=== PATIENT | female | born 1995 | race African-American/Black ===

== ENCOUNTER 2019-10-03 12:36 | Inpatient (IN) | payer MEDICAID ==
[~2019-10-03] VITALS: Ht 167.6 cm; Wt 60.8 kg
[2019-10-03 14:17] LABS: CLARITY URINE TURBID (CLEAR); COLOR URINE YELLOW (YELLOW); KETONES URINE NEGATIVE (NEGATIVE); LEUKOCYTE ESTERASE URINE 2+ (NEGATIVE); NITRITE URINE NEGATIVE (NEGATIVE); OCCULT BLOOD URINE NEGATIVE (NEGATIVE); PH URINE >=9.0 (4.5-8.0); PROTEIN URINE TRACE (NEGATIVE); SPECIFIC GRAVITY URINE 1.023 (1.005-1.030)
[2019-10-03] MEDS ORDERED: ONDANSETRON HCL 4MG/2ML INJ IV SCH (15:00)
[2019-10-03] MEDS: LACTATED RINGERS 1,000 ML IV SCH (15:07)
[2019-10-03] MEDS ORDERED: TERBUTALINE SULFATE 1MG/ML VIAL SUBCUT SCH (15:30)
[2019-10-03] MEDS ORDERED: BETAMETHASONE ACET/BETAMET 30 MG/5 ML VIAL IM ONE (16:15)
[2019-10-03] MEDS ORDERED: MAGNESIUM 4 G PREMIX 100 ML IV ONE (17:00)
[2019-10-03] MEDS ORDERED: RHO(D) IMMUNE GLOBULIN 300 MCG/SYR IM NR (18:00)
[2019-10-03 18:55] LABS: CLARITY URINE CLEAR (CLEAR); COLOR URINE YELLOW (YELLOW); KETONES URINE 1+ (NEGATIVE); LEUKOCYTE ESTERASE URINE NEGATIVE (NEGATIVE); NITRITE URINE NEGATIVE (NEGATIVE); OCCULT BLOOD URINE NEGATIVE (NEGATIVE); PH URINE 7.5 (4.5-8.0); PROTEIN URINE NEGATIVE (NEGATIVE); SPECIFIC GRAVITY URINE 1.012 (1.005-1.030); UROBILINOGEN URINE 0.2 E.U./dL (0.2-1.0)
[2019-10-03 19:13] LABS: *AMPHETAMINES SCREEN URINE NEGATIVE (NEGATIVE); *BARBITURATES SCREEN URINE NEGATIVE (NEGATIVE); *BENZODIAZEPINES SCREEN URINE NEGATIVE (NEGATIVE); *COCAINE SCREEN URINE NEGATIVE (NEGATIVE); METHADONE URINE SCREEN NEGATIVE (NEGATIVE)
[2019-10-03 19:14] LABS: OPIATES URINE SCREEN NEGATIVE (NEGATIVE); PHENCYCLIDINE URINE SCREEN NEGATIVE (NEGATIVE)
[2019-10-03 19:19] LABS: CANNABINOID URINE SCREEN PRESUMTIVE POSITIVE (NEGATIVE)
[2019-10-03 20:34] LABS: HEMATOCRIT. 28.4 % (36.0-48.0); MEAN CORPUSCULAR HEMOGLOBIN 30.6 pg (28.0-32.0); MEAN CORPUSCULAR VOLUME 86.9 fL (81.0-99.0); MEAN PLATELET VOLUME 6.7 fl (7.4-10.4); PLATELET 307 x1000/uL (130-400); RED BLOOD CELL COUNT 3.27 mill/uL (4.2-5.4); RED CELL DISTRIBUTION WIDTH 13.5 % (11.6-14.6)
[2019-10-03 20:41] LABS: INR 0.9; PARTIAL THROMBOPLASTIN TIME 24.5 sec (23.4-31.0); PROTHROMBIN TIME 9.8 sec (9.6-11.0)
[2019-10-03 21:07] LABS: HEPATITIS B SURFACE ANTIGEN NEGATIVE
[2019-10-03 21:10] LABS: PLATELET ESTIMATE NORMAL
[2019-10-04] MEDS: BUTORPHANOL TARTRATE 2 MG/ML VIAL IM PRN ×2 (00:21→20:30)
[2019-10-04] MEDS: AMPICILLIN 2,000 MG in SODIUM CHLORIDE 0.9% 100 ML IV SCH ×4 (00:43→18:27)
[2019-10-04] MEDS: LACTATED RINGERS 1,000 ML IV SCH ×2 (02:53→12:17)
[2019-10-04] MEDS: MAGNESIUM 20 G PREMIX (L & D) 500 ML IV SCH ×2 (05:01→14:46)
[2019-10-04] MEDS ORDERED: BETAMETHASONE ACET/BETAMET 30 MG/5 ML VIAL IM NR (16:30)
[2019-10-04] MEDS ORDERED: MAGNESIUM 20 G PREMIX (L & D) 500 ML IV SCH (21:15)
[2019-10-05] MEDS ORDERED: ONDANSETRON HCL 4MG/2ML INJ ONE (06:43)
[2019-10-05] MEDS: AMPICILLIN 2,000 MG in SODIUM CHLORIDE 0.9% 100 ML IV SCH ×3 (06:55→19:04)
[2019-10-05] MEDS: BUTORPHANOL TARTRATE 2 MG/ML VIAL IM PRN (06:57)
[2019-10-05 07:00] VITALS: BP 107/54
[2019-10-05] MEDS ORDERED: ONDANSETRON HCL 4MG/2ML INJ IV PRN (07:00)
[2019-10-05] MEDS: LACTATED RINGERS 1,000 ML IV SCH ×3 (10:46→19:21)
[2019-10-06] MEDS: AMPICILLIN 2,000 MG in SODIUM CHLORIDE 0.9% 100 ML IV SCH ×2 (01:09→06:58)
[2019-10-10 07:12] LABS: CANNABINOID CONFIRMATION URINE Positive (.)
== END 2019-10-06 12:15 | disposition home or self-care (01) | DRG 563 ==
LOC: OBSVTOIN 12:36 → 8 EST LDRP 12:36
PROVIDERS: ADMIT Obstetrics & Gynecology; ATTEND Obstetrics & Gynecology
DX: O60.03 Preterm labor without delivery, third trimester (principal); Z3A.29 29 weeks gestation of pregnancy; Z84.89 Family history of other specified conditions
CPT/HCPCS: 36415; 59412; 76805; 76818; 76830; 80305; 80349; 81003; 83735; 85025; 86592; 86703; 86762; 86850; 86900; 87340; 96360; 96372; 99281; G0378; J0290; J0595; J0702; J2405; J3105; J3475; J7050

== ENCOUNTER 2019-11-15 19:15 | Observation (INO) | payer MEDICAID ==
[~2019-11-15] VITALS: Ht 170.2 cm; Wt 65.8 kg
[2019-11-15] MEDS ORDERED: DEXT 5%/LACTATED RINGERS 1,000 ML IV SCH (20:30)
[2019-11-15 21:21] LABS: CLARITY URINE CLEAR (CLEAR); COLOR URINE DARK YELLOW (YELLOW); KETONES URINE NEGATIVE (NEGATIVE); LEUKOCYTE ESTERASE URINE 1+ (NEGATIVE); NITRITE URINE NEGATIVE (NEGATIVE); OCCULT BLOOD URINE NEGATIVE (NEGATIVE); PROTEIN URINE 1+ (NEGATIVE)
[2019-11-15 21:25] LABS: BASOPHILS % 0.2 % (0.0-2.0); EOSINOPHILS % 0.2 % (0.0-5.0); HEMATOCRIT. 28.5 % (36.0-48.0); HEMOGLOBIN. 9.6 g/dL (12.0-16.0); LYMPHOCYTES % 21.9 % (20.0-50.0); MEAN CORPUSCULAR HEMOGLOBIN 28.5 pg (28.0-32.0); MEAN CORPUSCULAR VOLUME 85.1 fL (81.0-99.0); MEAN PLATELET VOLUME 7.5 fl (7.4-10.4); MONOCYTES % 8.4 % (2.0-8.0); NEUTROPHILS % 69.3 % (40.0-76.0); PLATELET 313 x1000/uL (130-400); RED BLOOD CELL COUNT 3.35 mill/uL (4.2-5.4); RED CELL DISTRIBUTION WIDTH 13.1 % (11.6-14.6)
[2019-11-15] MEDS ORDERED: LACTATED RINGERS 1,000 ML IV SCH (22:15)
== END 2019-11-15 23:45 | disposition home or self-care (01) ==
LOC: 8 EST LDRP 19:15
PROVIDERS: ADMIT Obstetrics & Gynecology; ATTEND Obstetrics & Gynecology
DX: O26.893 Other specified pregnancy related conditions, third trimester (principal); R10.30 Lower abdominal pain, unspecified; Z3A.35 35 weeks gestation of pregnancy; O62.9 Abnormality of forces of labor, unspecified; V89.2XXA Person injured in unspecified motor-vehicle accident, traffic, initial encounter; Y93.89 Activity, other specified; Y92.89 Other specified places as the place of occurrence of the external cause; Y99.8 Other external cause status
CPT/HCPCS: 36415; 59025; 76805; 76818; 81003; 85025; 96360; 96361; G0378; 99281

== ENCOUNTER 2020-03-06 00:19 | Emergency (ER) | payer MEDICAID, OTHER ==
[~2020-03-06] VITALS: Ht 170.2 cm; Wt 52.7 kg
[2020-03-06] MEDS ORDERED: KETOROLAC 30MG/ML VIAL IV SCH (01:45)
[2020-03-06 01:53] LABS: BASOPHILS % 0.3 % (0.0-2.0); EOSINOPHILS % 0.1 % (0.0-5.0); HEMATOCRIT. 29.1 % (36.0-48.0); HEMOGLOBIN. 9.7 g/dL (12.0-16.0); LYMPHOCYTES % 15.9 % (20.0-50.0); MEAN CORPUSCULAR HEMOGLOBIN 26.3 pg (28.0-32.0); MEAN CORPUSCULAR VOLUME 78.8 fL (81.0-99.0); MEAN PLATELET VOLUME 6.6 fl (7.4-10.4); MONOCYTES % 8.5 % (2.0-8.0); NEUTROPHILS % 75.2 % (40.0-76.0); PLATELET 405 x1000/uL (130-400); RED BLOOD CELL COUNT 3.69 mill/uL (4.2-5.4); RED CELL DISTRIBUTION WIDTH 17.8 % (11.6-14.6)
[2020-03-06 01:54] LABS: CLARITY URINE CLOUDY (CLEAR); COLOR URINE YELLOW (YELLOW); KETONES URINE 1+ (NEGATIVE); LEUKOCYTE ESTERASE URINE TRACE (NEGATIVE); NITRITE URINE NEGATIVE (NEGATIVE); OCCULT BLOOD URINE NEGATIVE (NEGATIVE); PROTEIN URINE 3+ (NEGATIVE); SPECIFIC GRAVITY URINE 1.028 (1.005-1.030)
[2020-03-06 02:00] LABS: CHLORIDE 105 mEq/L (98-107)
[2020-03-06 02:04] LABS: PROTHROMBIN TIME 10.9 sec (9.6-11.0)
[2020-03-06] MEDS ORDERED: IOHEXOL-300 100 ML BOTTLE ONE (03:10)
[2020-03-06 04:58] VITALS: BP 110/71
== END 2020-03-06 06:22 | disposition home or self-care (01) ==
LOC: ER 00:19
DX: A09 Infectious gastroenteritis and colitis, unspecified (principal); R03.0 Elevated blood-pressure reading, without diagnosis of hypertension
CPT/HCPCS: 36415; 74177; 76705; 80053; 81003; 81025; 83690; 85025; 85610; 93005; 96374; 99285; J1885; Q9967

== ENCOUNTER 2020-12-09 02:10 | Inpatient (IN) | payer OTHER ==
[~2020-12-09] VITALS: Ht 170.2 cm; Wt 54.4 kg
[2020-12-09] MEDS: LACTATED RINGERS 1,000 ML IV SCH ×5 (02:15→17:57)
[2020-12-09] MEDS ORDERED: DEXT 5%/LR + PITOCIN 20UNITS/L 1,000 ML IV SCH (02:30)
[2020-12-09] MEDS ORDERED: MISOPROSTOL 100MCG TABLET VG SCH (02:30)
[2020-12-09] MEDS ORDERED: BUTORPHANOL TARTRATE 2 MG/ML VIAL IV PRN (02:30)
[2020-12-09] MEDS ORDERED: METHYLERGONOVINE MALEATE 0.2 MG/ML IM PRN (02:30)
[2020-12-09] MEDS ORDERED: LIDOCAINE HCL 1% 20ML VIAL (Pyxis) INJ INFIL SCH (02:30)
[2020-12-09] MEDS ORDERED: CARBOPROST TROMETHAMINE 250 MCG/ML AMPUL IM PRN (02:30)
[2020-12-09] MEDS ORDERED: NALOXONE HCL 0.4 MG/ML 1ML VIAL IM PRN (02:30)
[2020-12-09 02:53] LABS: CLARITY URINE CLEAR (CLEAR); COLOR URINE YELLOW (YELLOW); HEMATOCRIT. 28.2 % (36.0-48.0); HEMOGLOBIN. 9.2 g/dL (12.0-16.0); KETONES URINE NEGATIVE (NEGATIVE); LEUKOCYTE ESTERASE URINE TRACE (NEGATIVE); MEAN CORPUSCULAR HEMOGLOBIN 24.9 pg (28.0-32.0); MEAN CORPUSCULAR VOLUME 76.7 fL (81.0-99.0); MEAN PLATELET VOLUME 7.7 fl (7.4-10.4); NITRITE URINE NEGATIVE (NEGATIVE); OCCULT BLOOD URINE TRACE (NEGATIVE); PH URINE 8.5 (4.5-8.0); PLATELET 328 x1000/uL (130-400); PROTEIN URINE TRACE (NEGATIVE); RED BLOOD CELL COUNT 3.68 mill/uL (4.2-5.4); RED CELL DISTRIBUTION WIDTH 16.3 % (11.6-14.6); SPECIFIC GRAVITY URINE 1.016 (1.005-1.030)
[2020-12-09] MEDS ORDERED: PENICILLIN G POTASSIUM 5 MMU in DEXT 5% WATER 100 ML IV SCH (03:00)
[2020-12-09 03:03] LABS: INR 0.9; PARTIAL THROMBOPLASTIN TIME 23.8 sec (23.4-31.0); PROTHROMBIN TIME 9.7 sec (9.6-11.0)
[2020-12-09] MEDS ORDERED: BETAMETHASONE ACET/BETAMET 30 MG/5 ML VIAL IM ONE (03:45)
[2020-12-09 03:50] LABS: CHLORIDE 106 mEq/L (98-107)
[2020-12-09 03:58] LABS: *AMPHETAMINES SCREEN URINE NEGATIVE (NEGATIVE); *BARBITURATES SCREEN URINE NEGATIVE (NEGATIVE); *BENZODIAZEPINES SCREEN URINE NEGATIVE (NEGATIVE); *COCAINE SCREEN URINE NEGATIVE (NEGATIVE); METHADONE URINE SCREEN NEGATIVE (NEGATIVE); OPIATES URINE SCREEN NEGATIVE (NEGATIVE)
[2020-12-09 03:59] LABS: PHENCYCLIDINE URINE SCREEN NEGATIVE (NEGATIVE)
[2020-12-09 04:12] LABS: CANNABINOID URINE SCREEN PRESUMTIVE POSITIVE (NEGATIVE)
[2020-12-09 04:27] LABS: HEPATITIS B SURFACE ANTIGEN NEGATIVE
[2020-12-09] MEDS ORDERED: ONDANSETRON HCL 4MG/2ML INJ IV PRN (05:00)
[2020-12-09] MEDS ORDERED: DIPHENHYDRAMINE 50MG/ML VIAL IV PRN (05:00)
[2020-12-09] MEDS ORDERED: ROPIVACAINE HCL/PF EPIDURAL 200 ML EPI SCH (05:00)
[2020-12-09] MEDS: PENICILLIN G POTASSIUM 2.5 MMU in DEXTROSE 5% WATER 50 ML IV SCH ×5 (07:30→21:23)
[2020-12-09 08:05] LABS: PLATELET ESTIMATE NORMAL
[2020-12-09] MEDS ORDERED: BETAMETHASONE ACET/BETAMET 30 MG/5 ML VIAL IM SCH (15:41)
[2020-12-09] MEDS ORDERED: ROPIVACAINE HCL/PF EPIDURAL 200 ML EPI ONE (23:20)
[2020-12-10] MEDS: PENICILLIN G POTASSIUM 2.5 MMU in DEXTROSE 5% WATER 50 ML IV SCH ×2 (01:30→05:42)
[2020-12-10] MEDS: LACTATED RINGERS 1,000 ML IV SCH ×2 (01:45→11:51)
[2020-12-10] MEDS ORDERED: NALOXONE HCL 0.4 MG/ML 1ML VIAL IM PRN (06:00)
[2020-12-10] MEDS ORDERED: LACTATED RINGERS 1,000 ML IV SCH (06:00)
[2020-12-10] MEDS ORDERED: CARBOPROST TROMETHAMINE 250 MCG/ML AMPUL IM PRN (06:00)
[2020-12-10] MEDS ORDERED: METHYLERGONOVINE MALEATE 0.2 MG/ML IM PRN (06:00)
[2020-12-10] MEDS ORDERED: AZITHROMYCIN 500 MG in DEXT 5% WATER 250 ML IV SCH (09:00)
[2020-12-10] MEDS ORDERED: ACETAMINOPHEN WITH CODEINE 300/30MG TABLET PO PRN ×2 (15:45→16:45)
[2020-12-10] MEDS ORDERED: BISACODYL 10MG SUPP PR PRN (15:45)
[2020-12-10] MEDS ORDERED: GLYCERIN/WITCH HAZEL LEAF MEDICATED PAD TOP PRN (15:45)
[2020-12-10] MEDS ORDERED: HEMORRHOIDAL SUPP PR PRN (15:45)
[2020-12-10] MEDS ORDERED: DEXT 5%/LR + PITOCIN 20UNITS/L 1,000 ML IV SCH (15:45)
[2020-12-10] MEDS ORDERED: LANOLIN OINT 7GM TUBE TOP PRN (15:45)
[2020-12-10] MEDS ORDERED: BENZOCAINE/LANOLIN/ALOE VERA SPRAY TOP PRN (15:45)
[2020-12-10] MEDS ORDERED: IBUPROFEN 400MG TABLET PO PRN (15:45)
[2020-12-10] MEDS ORDERED: DIPHENHYDRAMINE 25MG CAPSULE PO PRN (15:45)
[2020-12-10 16:10] VITALS: BP 122/75
[2020-12-10] MEDS: IBUPROFEN 800MG TABLET PO PRN ×2 (16:40→20:12)
[2020-12-10] MEDS: SIMETHICONE 80MG TABLET CHEW PO SCH ×2 (16:41→20:13)
[2020-12-10] MEDS: DOCUSATE SODIUM 100MG CAPSULE PO SCH (20:13)
[2020-12-10 21:00] VITALS: BP 107/63
[2020-12-11 04:00] VITALS: BP 110/70
[2020-12-11] MEDS: IBUPROFEN 800MG TABLET PO PRN ×2 (06:14→22:37)
[2020-12-11 07:11] LABS: BASOPHILS % 0.3 % (0.0-2.0); HEMATOCRIT. 25.8 % (36.0-48.0); HEMOGLOBIN. 8.3 g/dL (12.0-16.0); LYMPHOCYTES % 20.6 % (20.0-50.0); MEAN CORPUSCULAR HEMOGLOBIN 24.7 pg (28.0-32.0); MEAN CORPUSCULAR VOLUME 76.5 fL (81.0-99.0); MEAN PLATELET VOLUME 7.7 fl (7.4-10.4); MONOCYTES % 7.8 % (2.0-8.0); NEUTROPHILS % 71.3 % (40.0-76.0); PLATELET 288 x1000/uL (130-400); RED BLOOD CELL COUNT 3.38 mill/uL (4.2-5.4); RED CELL DISTRIBUTION WIDTH 16.5 % (11.6-14.6)
[2020-12-11 07:30] VITALS: BP 104/68
[2020-12-11] MEDS: PRENATAL VIT/FE FUMARATE/FA TABLET PO SCH (08:45)
[2020-12-11] MEDS: FERROUS SULFATE 325MG TABLET PO SCH ×3 (08:45→18:29)
[2020-12-11] MEDS: SIMETHICONE 80MG TABLET CHEW PO SCH ×4 (08:45→22:35)
[2020-12-11 16:38] VITALS: BP 110/65
[2020-12-11 22:00] VITALS: BP 119/64
[2020-12-11] MEDS: DOCUSATE SODIUM 100MG CAPSULE PO SCH (22:35)
[2020-12-12 05:28] VITALS: BP 100/60
[2020-12-12] MEDS: PRENATAL VIT/FE FUMARATE/FA TABLET PO SCH (09:04)
[2020-12-12 10:00] VITALS: BP 110/72
[2020-12-12] MEDS: SIMETHICONE 80MG TABLET CHEW PO SCH (13:11)
[2020-12-12] MEDS: FERROUS SULFATE 325MG TABLET PO SCH (13:11)
[2020-12-12] MEDS: IBUPROFEN 800MG TABLET PO PRN (13:11)
[2020-12-12 17:00] VITALS: BP 123/73
[2020-12-12 22:00] VITALS: BP 106/56
[2020-12-13] MEDS ORDERED: PREN-118 MT (04:01)
[2020-12-13] MEDS ORDERED: FERR325T23 MT (04:01)
[2020-12-13 06:00] VITALS: BP 118/70
[2020-12-13 08:45] VITALS: BP 120/72
[2020-12-13] MEDS: PRENATAL VIT/FE FUMARATE/FA TABLET PO SCH (13:13)
[2020-12-13] MEDS: FERROUS SULFATE 325MG TABLET PO SCH (13:13)
[2020-12-24 04:12] LABS: CANNABINOID CONFIRMATION URINE Positive (.)
== END 2020-12-13 13:30 | disposition home or self-care (01) | DRG 560 ==
LOC: 8 EST LDRP 02:10 → OBSVTOIN 02:10 → 8EST 12-10 15:44
PROVIDERS: ADMIT Specialist; ATTEND Specialist
PROC: 10E0XZZ Delivery of Products of Conception, External Approach (ICD-10-PCS; principal; 2020-12-10)
PROC: 0KQM0ZZ Repair Perineum Muscle, Open Approach (ICD-10-PCS; 2020-12-10)
PROC: 3E0R3BZ Introduction of Anesthetic Agent into Spinal Canal, Percutaneous Approach (ICD-10-PCS; 2020-12-10)
PROC: 00HU33Z Insertion of Infusion Device into Spinal Canal, Percutaneous Approach (ICD-10-PCS; 2020-12-10)
DX: O60.14X0 Preterm labor third trimester with preterm delivery third trimester, not applicable or unspecified (principal); Z37.0 Single live birth; O99.324 Drug use complicating childbirth; D64.9 Anemia, unspecified; F12.10 Cannabis abuse, uncomplicated; O99.02 Anemia complicating childbirth; Z20.822 Contact with and (suspected) exposure to COVID-19; O70.1 Second degree perineal laceration during delivery; Z3A.35 35 weeks gestation of pregnancy
CPT/HCPCS: 36415; 76805; 80053; 80305; 80349; 81003; 85025; 86592; 86703; 86762; 86850; 86900; 87340; 87426; 99281; J0456; J0595; J0702; J2540; J2590; J2795; J3490; J7060; J7120

== ENCOUNTER 2021-09-21 02:02 | Emergency (ER) | payer OTHER ==
[2021-09-20 21:18] LABS: CLARITY URINE CLEAR (CLEAR); COLOR URINE YELLOW (YELLOW); KETONES URINE TRACE (NEGATIVE); LEUKOCYTE ESTERASE URINE NEGATIVE (NEGATIVE); NITRITE URINE NEGATIVE (NEGATIVE); OCCULT BLOOD URINE NEGATIVE (NEGATIVE); PROTEIN URINE 1+ (NEGATIVE); SPECIFIC GRAVITY URINE 1.018 (1.005-1.030)
[2021-09-20 21:22] LABS: BASOPHILS % 0.2 % (0.0-2.0); EOSINOPHILS % 0.4 % (0.0-5.0); HEMATOCRIT. 24.2 % (36.0-48.0); HEMOGLOBIN. 8.2 g/dL (12.0-16.0); LYMPHOCYTES % 18.3 % (20.0-50.0); MEAN CORPUSCULAR HEMOGLOBIN 28.3 pg (28.0-32.0); MEAN CORPUSCULAR VOLUME 83.1 fL (81.0-99.0); MEAN PLATELET VOLUME 6.7 fl (7.4-10.4); MONOCYTES % 6.7 % (2.0-8.0); NEUTROPHILS % 74.4 % (40.0-76.0); PLATELET 317 x1000/uL (130-400); RED BLOOD CELL COUNT 2.91 mill/uL (4.2-5.4); RED CELL DISTRIBUTION WIDTH 14.5 % (11.6-14.6)
[2021-09-20 21:23] LABS: CHLORIDE 104 mEq/L (98-107)
[~2021-09-21] VITALS: Ht 170.2 cm; Wt 62.3 kg
[~2021-09-21 02:02] MED LIST: ACETAMINOPHEN 500MG TABLET PO NR; DEXT 5%/LACTATED RINGERS 1,000 ML IV SCH; TERBUTALINE SULFATE 1MG/ML VIAL SUBCUT PRN
[2021-09-21 02:57] VITALS: BP 106/78
[2021-09-21 04:25] LABS: BASOPHILS % 0.3 % (0.0-2.0); EOSINOPHILS % 0.2 % (0.0-5.0); HEMATOCRIT. 24.3 % (36.0-48.0); HEMOGLOBIN. 8.1 g/dL (12.0-16.0); MEAN CORPUSCULAR HEMOGLOBIN 27.7 pg (28.0-32.0); MEAN CORPUSCULAR VOLUME 82.7 fL (81.0-99.0); MEAN PLATELET VOLUME 6.6 fl (7.4-10.4); MONOCYTES % 9.2 % (2.0-8.0); NEUTROPHILS % 67.3 % (40.0-76.0); PLATELET 325 x1000/uL (130-400); RED BLOOD CELL COUNT 2.94 mill/uL (4.2-5.4); RED CELL DISTRIBUTION WIDTH 14.4 % (11.6-14.6)
[2021-09-21 04:38] LABS: CHLORIDE 106 mEq/L (98-107)
[2021-09-21] MEDS ORDERED: SODIUM CHLORIDE 0.9% 1,000 ML IV ONE (06:45)
== END 2021-09-21 09:30 | disposition home or self-care (01) ==
LOC: EDSTATUS 02:02 → ER 02:02
DX: O26.892 Other specified pregnancy related conditions, second trimester (principal); R55 Syncope and collapse; R51.9 Headache, unspecified; Z3A.26 26 weeks gestation of pregnancy
CPT/HCPCS: 36415; 70450; 76805; 76818; 80053; 81003; 84484; 85025; 93005; 96360; 96372; 99285; J3105; J7030; 99281

== ENCOUNTER 2021-12-12 10:19 | Inpatient (IN) | payer MEDICAID, OTHER ==
[~2021-12-12] VITALS: Ht 167.6 cm; Wt 63.5 kg
[2021-12-12] MEDS ORDERED: BUTORPHANOL TARTRATE 2 MG/ML VIAL IV PRN (11:00)
[2021-12-12] MEDS ORDERED: NALOXONE HCL 0.4 MG/ML 1ML VIAL IM PRN (11:00)
[2021-12-12] MEDS ORDERED: LIDOCAINE HCL 1% 20ML VIAL (Pyxis) INJ INFIL SCH (11:00)
[2021-12-12] MEDS ORDERED: METHYLERGONOVINE MALEATE 0.2 MG/ML IM PRN (11:00)
[2021-12-12] MEDS ORDERED: LACTATED RINGERS 1,000 ML IV SCH (11:00)
[2021-12-12] MEDS ORDERED: OXYTOCIN 30 UNITS/500ML NS PMX 500 ML IV SCH ×2 (11:00→12:15)
[2021-12-12] MEDS ORDERED: CARBOPROST TROMETHAMINE 250 MCG/ML AMPUL IM PRN (11:00)
[2021-12-12] MEDS ORDERED: AMPICILLIN 2GM in NS 100ML 100 ML IV SCH (11:00)
[2021-12-12] MEDS ORDERED: ROPIVACAINE HCL/PF EPIDURAL 200 ML EPI NR (11:15)
[2021-12-12 12:54] LABS: BASOPHILS % 0.4 % (0.0-2.0); EOSINOPHILS % 0.2 % (0.0-5.0); HEMATOCRIT. 31.7 % (36.0-48.0); HEMOGLOBIN. 10.6 g/dL (12.0-16.0); LYMPHOCYTES % 8.5 % (20.0-50.0); MEAN CORPUSCULAR HEMOGLOBIN 28.2 pg (28.0-32.0); MEAN CORPUSCULAR VOLUME 84.2 fL (81.0-99.0); MEAN PLATELET VOLUME 7.5 fl (7.4-10.4); MONOCYTES % 6.6 % (2.0-8.0); NEUTROPHILS % 84.3 % (40.0-76.0); PLATELET 347 x1000/uL (130-400); RED BLOOD CELL COUNT 3.76 mill/uL (4.2-5.4); RED CELL DISTRIBUTION WIDTH 16.6 % (11.6-14.6)
[2021-12-12 13:09] LABS: CHLORIDE 103 mEq/L (98-107)
[2021-12-12 13:12] LABS: INR 0.9; PARTIAL THROMBOPLASTIN TIME 22.8 sec (23.4-31.0); PROTHROMBIN TIME 9.9 sec (9.6-11.0)
[2021-12-12] MEDS: OXYTOCIN 10 UNITS/ML 1ML IM SCH ×2 (13:20→14:01)
[2021-12-12 13:22] LABS: CLARITY URINE CLEAR (CLEAR); COLOR URINE DARK YELLOW (YELLOW); KETONES URINE TRACE (NEGATIVE); LEUKOCYTE ESTERASE URINE TRACE (NEGATIVE); NITRITE URINE NEGATIVE (NEGATIVE); OCCULT BLOOD URINE NEGATIVE (NEGATIVE); PH URINE >=9.0 (4.5-8.0); PROTEIN URINE 1+ (NEGATIVE); SPECIFIC GRAVITY URINE 1.023 (1.005-1.030)
[2021-12-12] MEDS ORDERED: RHO(D) IMMUNE GLOBULIN 300 MCG/SYR IM PRN (13:30)
[2021-12-12] MEDS ORDERED: IBUPROFEN 400MG TABLET PO PRN (13:30)
[2021-12-12 15:11] LABS: HEPATITIS B SURFACE ANTIGEN NEGATIVE
[2021-12-12 16:00] VITALS: BP 105/69
[2021-12-12] MEDS: IBUPROFEN 800MG TABLET PO PRN (16:19)
[2021-12-12 17:00] VITALS: BP 105/57
[2021-12-12] MEDS ORDERED: AMPICILLIN 1,000 MG in SODIUM CHLORIDE 0.9% 50 ML IV SCH (17:00)
[2021-12-12 17:26] LABS: *AMPHETAMINES SCREEN URINE NEGATIVE (NEGATIVE); *BARBITURATES SCREEN URINE NEGATIVE (NEGATIVE); *BENZODIAZEPINES SCREEN URINE NEGATIVE (NEGATIVE); *COCAINE SCREEN URINE NEGATIVE (NEGATIVE); METHADONE URINE SCREEN NEGATIVE (NEGATIVE); OPIATES URINE SCREEN NEGATIVE (NEGATIVE); PHENCYCLIDINE URINE SCREEN NEGATIVE (NEGATIVE)
[2021-12-12 17:36] LABS: CANNABINOID URINE SCREEN PRESUMTIVE POSITIVE (NEGATIVE)
[2021-12-12] MEDS ORDERED: TETANUS, DIPHTHERIA, PERTUSSIS VAC/PF 0.5ML (>10YR OLD) IM ONE (18:00)
[2021-12-12 20:00] VITALS: BP 90/53
[2021-12-13] MEDS: IBUPROFEN 800MG TABLET PO PRN (03:31)
[2021-12-13 04:00] VITALS: BP 111/73
[2021-12-13 07:01] LABS: BASOPHILS % 0.2 % (0.0-2.0); EOSINOPHILS % 0.1 % (0.0-5.0); HEMATOCRIT. 27.2 % (36.0-48.0); HEMOGLOBIN. 9.3 g/dL (12.0-16.0); MEAN CORPUSCULAR HEMOGLOBIN 28.8 pg (28.0-32.0); MEAN PLATELET VOLUME 7.5 fl (7.4-10.4); MONOCYTES % 11.2 % (2.0-8.0); NEUTROPHILS % 77.5 % (40.0-76.0); PLATELET 269 x1000/uL (130-400); RED BLOOD CELL COUNT 3.24 mill/uL (4.2-5.4); RED CELL DISTRIBUTION WIDTH 16.3 % (11.6-14.6)
[2021-12-13] MEDS: FERROUS SULFATE 325MG TABLET PO SCH ×2 (07:16→13:00)
[2021-12-13 08:15] VITALS: BP 99/66
[2021-12-13] MEDS ORDERED: PRENATAL VIT/FE FUMARATE/FA TABLET PO SCH (09:00)
[2021-12-19 05:11] LABS: CANNABINOID CONFIRMATION URINE Positive (.)
== END 2021-12-13 13:50 | disposition home or self-care (01) | DRG 560 ==
LOC: OBSVTOIN 10:19 → 8 EST LDRP 10:19 → 8EST 15:53 → 8 EST LDRP 22:14
PROVIDERS: ADMIT Obstetrics & Gynecology; ATTEND Obstetrics & Gynecology
PROC: 10E0XZZ Delivery of Products of Conception, External Approach (ICD-10-PCS; principal; 2021-12-12)
DX: O98.52 Other viral diseases complicating childbirth (principal); Z37.0 Single live birth; U07.1 COVID-19; O69.81X0 Labor and delivery complicated by cord around neck, without compression, not applicable or unspecified; Z3A.37 37 weeks gestation of pregnancy; Z83.3 Family history of diabetes mellitus
CPT/HCPCS: 36415; 76805; 76818; 80053; 80305; 80349; 81003; 85025; 86592; 86703; 86762; 86850; 86900; 87340; 87426; 90715; J0290; J0595; J7120; J2590